=== PATIENT | female | born 1985 | race Caucasian/White ===

== ENCOUNTER 2020-08-31 20:34 | Emergency (ER) | payer OTHER ==
[2020-08-31 20:44] VITALS: RESP 18
[2020-08-31] MEDS ORDERED: SODIUM CHLORIDE 0.9% 1,000 ML IV STA (21:09)
[2020-08-31] MEDS ORDERED: METOCLOPRAMIDE 5 MG/ML 2 ML VIAL IVP STA (21:30)
[2020-08-31] MEDS ORDERED: HYDROmorphone 1 MG/ML 1 ML SYRINGE IVP STA (21:30)
[2020-08-31] MEDS ORDERED: diphenhydrAMINE 50 MG/ML 1 ML VIAL IVP STA (21:31)
[2020-08-31 21:48] LABS: ALT 46 U/L (4-34); AST 59 U/L (14-36); African American GFR (CKD) >90 (>60 ml/min/1.73 sqM); Alkaline Phosphatase 83 U/L (38-126); Anion Gap 6 mmol/L; Appearance,Urine Clear (Clear); Bilirubin,Urine Negative (Negative); Blood Urea Nitrogen 9 mg/dL (7-17); Blood,Urine Negative (Negative); Calcium 9.1 mg/dL (8.4-10.2); Carbon Dioxide 25 mmol/L (22-30); Chloride 105 mmol/L (98-107); Color,Urine Light Yellow; Glucose 139 mg/dL (74-99); Glucose,Urine (UA) Negative (Negative); Ketones,Urine Negative (Negative); Leukocyte Esterase,Urine Negative (Negative); Lipase 67 U/L (23-300); Nitrite,Urine Negative (Negative); Non-African American GFR(CKD) >90 (>60 ml/min/1.73 sqM); PH, Urine 5.5 (5.0-8.0); Potassium 3.5 mmol/L (3.5-5.1); Protein,Urine Negative (Negative); Sodium 136 mmol/L (137-145); Specific Gravity,Urine 1.006 (1.001-1.035); Total Bilirubin 0.5 mg/dL (0.2-1.3); Total Protein 6.6 g/dL (6.3-8.2); Urobilinogen,Urine <2.0 mg/dL (<2.0)
[2020-08-31 21:53] LABS: Basophils % (A) 0 %; Eosinophils % (A) 0 %; HGB 11.8 gm/dL (11.4-16.0); Lymphocytes # (A) 1.1 k/uL (1.0-4.8); Lymphocytes % (A) 22 %; MCH 30.6 pg (25.0-35.0); MCHC 33.6 g/dL (31.0-37.0); MCV 90.8 fL (80.0-100.0); Mean Platelet Volume 8.7; Monocytes # (A) 0.3 k/uL (0-1.0); Monocytes % (A) 6 %; Neutrophils # (A) 3.6 k/uL (1.3-7.7); Neutrophils % (A) 70 %; Platelet Count 236 k/uL (150-450); RBC 3.85 m/uL (3.80-5.40); RDW 12.7 % (11.5-15.5); WBC 5.1 k/uL (3.8-10.6)
--- NOTE | 2020-08-31 22:10 | CT ---
EXAMINATION TYPE: CT abdomen pelvis w con DATE OF EXAM: 08/31/2020 COMPARISON: None HISTORY: Abdominal pain. Hx of cholecystectomy x5 weeks ago. CT DLP: 523.2 mGycm Automated exposure control for dose reduction was used. CONTRAST: Performed with IV Contrast, patient injected with 100ml mL of Isovue 300. Images obtained from the diaphragm to the floor the pelvis with IV contrast. Lung bases are clear of infiltrate. There is no pleural effusion. Heart size is normal. There is no p ericardial effusion. Liver spleen stomach pancreas appear intact. The bile ducts are not dilated. There are clips from cho lecystectomy. There is no adrenal mass. Kidneys show satisfactory contrast opacification. There is no hydronephrosi s. The ureters are not dilated. There is no retroperitoneal adenopathy. Bladder distends smoothly. Th ere is no inguinal hernia. There is no free fluid in the pelvis. There is retained fecal material in the rectosigmoid colon. [place] michelle is retroverted. There is mild thoracolumbar dextroscoliosis. There is mild lumbar levoscoliosis. There is L1 anterior wedging with 20% loss of height. This appears to be an old compression fracture. There is no evidence of pelvic mass. Appendix not definitely seen. No sign of thickened appendix. IMPRESSION: Constipation. Appendix not seen. No sign of thickened appendix.
--- NOTE | 2020-08-31 22:55 | ED ---
General Adult HPI - General Chief complaint: Abdominal Pain Stated complaint: Abd Pain Time Seen by Provider: 08/31/20 20:40 Source: EMS Mode of arrival: EMS Limitations: no limitations - History of Present Illness Initial comments: Patient is a 35-year-old female who is brought to the emergency Department for reported epigastric abdominal pain. Patient states that she has had the pain for some time. She did have a cholecystectomy at [facility], [place] approximate 5 weeks ago. States that she did have some improvement in her pain however got worse over the past couple days. States she hasn't been able to eat or drink. Admits to history of peptic ulcer disease. States that she has had dark stools. Denies alcohol or NSAID use. Does have concern for . No abnormal vaginal bleeding or discharge. No dysuria, hematuria or voiding. No diarrhea or constipation. Patient was given morphine and Zofran by EMS without improvement in her symptoms. She denies any fevers. No chest pain or shortness of breath. No other alleviating, precipitating factors - Related Data Previous Rx's Medication Instructions Recorded HYDROcodone/APAP 5-325MG [Kincaid 1 tab PO Q6HR PRN 3 Days #12 tab 08/31/20 5-325] Metoclopramide HCl [Reglan] 10 mg PO TID PRN #20 tablet 08/31/20 Omeprazole 20 mg PO DAILY #14 tablet. 08/31/20 Sucralfate [Carafate] 1 gm PO ACHS #56 tab 08/31/20 Allergies Allergy/AdvReac Type Severity Reaction Status Date / Time No Known Allergies Allergy Verified 08/31/20 20:37 Review of Systems ROS Statement: Those systems with pertinent positive or pertinent negative responses have been documented in the HPI. ROS Other: All systems not noted in ROS Statement are negative. Past Medical History Past Medical History: No Reported History History of Any Multi-Drug Resistant Organisms: None Reported Past Surgical History: Cholecystectomy Past Psychological History: Anxiety, Depression, Panic Disorder, PTSD Smoking Status: Former smoker, Vaper Past Alcohol Use History: None Reported Past Drug Use History: None Reported General Exam Limitations: no limitations General appearance: alert, in no apparent distress Head exam: Present: atraumatic, normocephalic, normal inspection Eye exam: Present: normal appearance, PERRL, EOMI. Absent: scleral icterus, conjunctival injection, periorbital swelling ENT exam: Present: normal exam, mucous membranes moist Neck exam: Present: normal inspection. Absent: tenderness, meningismus, lymphadenopathy Respiratory exam: Present: normal lung sounds bilaterally. Absent: respiratory distress, wheezes, rales, rhonchi, stridor Cardiovascular Exam: Present: regular rate, normal rhythm, normal heart sounds. Absent: systolic murmur, diastolic murmur, rubs, gallop, clicks GI/Abdominal exam: Present: soft, tenderness (epigastric), normal bowel sounds. Absent: distended, guarding, rebound, rigid Extremities exam: Present: normal inspection, full ROM, normal capillary refill. Absent: tenderness, pedal edema, joint swelling, calf tenderness Back exam: Present: normal inspection Neurological exam: Present: alert, oriented X3, CN II-XII intact Psychiatric exam: Present: normal affect, normal mood Skin exam: Present: warm, dry, intact, normal color. Absent: rash Course Vital Signs 08/31/20 08/31/20 20:37 23:07 Temperature 98.1 F 98.2 F Pulse Rate 79 75 Respiratory 18 18 Rate Blood Pressure 112/62 100/64 O2 Sat by Pulse 94 L 96 Oximetry Medical Decision Making - Medical Decision Making Upon arrival patient's placed into room 7. A thorough history and physical exam was performed. Patient was are to give informal grams of morphine and 4 mg of Zofran by EMS and continues to have vomiting. Patient is then given 10 mg of Reglan, 25 mg of Benadryl and 1 mg of Dilaudid. Laboratory studies are conducted and reviewed. Results are discussed the patient. I also sent the patient for CT for abdomen and pelvis. Results of the CT of discuss the patient. At this time I did discuss diagnosis, differential and treatment options. Patient does feel much improved. Patient will be discharged home and needs to follow up with GI in regards to her symptoms. She is given Dr. Guevara's contact information. She needs to follow-up with her primary care doctor in 2-4 days. Return to the match her for any new or worsening symptoms. Patient was discharged home in stable condition - Lab Data Result diagrams: 08/31/20 21:14 08/31/20 21:14 Lab Results 08/31/20 08/31/20 08/31/20 Range/Units 21:14 21:14 21:14 WBC 5.1 (3.8-10.6) k/uL RBC 3.85 (3.80-5.40) m/uL Hgb 11.8 (11.4-16.0) gm/dL Hct 35.0 (34.0-46.0) % MCV 90.8 (80.0-100.0) fL MCH 30.6 (25.0-35.0) pg MCHC 33.6 (31.0-37.0) g/dL RDW 12.7 (11.5-15.5) % Plt Count 236 (150-450) k/uL MPV 8.7 Neutrophils % 70 % Lymphocytes % 22 % Monocytes % 6 % Eosinophils % 0 % Basophils % 0 % Neutrophils # 3.6 (1.3-7.7) k/uL Lymphocytes # 1.1 (1.0-4.8) k/uL Monocytes # 0.3 (0-1.0) k/uL Eosinophils # 0.0 (0-0.7) k/uL Basophils # 0.0 (0-0.2) k/uL Sodium (137-145) mmol/L Potassium (3.5-5.1) mmol/L Chloride (98-107) mmol/L Carbon Dioxide (22-30) mmol/L Anion Gap mmol/L BUN (7-17) mg/dL Creatinine (0.52-1.04) mg/dL Est GFR (CKD-EPI)AfAm (>60 ml/min/1.73 sqM) Est GFR (CKD-EPI)NonAf (>60 ml/min/1.73 sqM) Glucose (74-99) mg/dL Plasma Lactic Acid Jeramy (0.7-2.0) mmol/L Calcium (8.4-10.2) mg/dL Total Bilirubin (0.2-1.3) mg/dL AST (14-36) U/L ALT (4-34) U/L Alkaline Phosphatase (38-126) U/L Total Protein (6.3-8.2) g/dL Albumin (3.5-5.0) g/dL Lipase (23-300) U/L Urine Color Light Yellow Urine Appearance Clear (Clear) Urine pH 5.5 (5.0-8.0) Ur Specific [place] 1.006 (1.001-1.035) Urine Protein Negative (Negative) Urine Glucose (UA) Negative (Negative) Urine Ketones Negative (Negative) Urine Blood Negative (Negative) Urine Nitrite Negative (Negative) Urine Bilirubin Negative (Negative) Urine Urobilinogen <2.0 (<2.0) mg/dL Ur Leukocyte Esterase Negative (Negative) Urine HCG, Qual Not Detected (Not Detectd) Stool Occult Blood (Negative) 08/31/20 08/31/20 08/31/20 Range/Units 21:14 21:14 21:24 WBC (3.8-10.6) k/uL RBC (3.80-5.40) m/uL Hgb (11.4-16.0) gm/dL Hct (34.0-46.0) % MCV (80.0-100.0) fL MCH (25.0-35.0) pg MCHC (31.0-37.0) g/dL RDW (11.5-15.5) % Plt Count (150-450) k/uL MPV Neutrophils % % Lymphocytes % % Monocytes % % Eosinophils % % Basophils % % Neutrophils # (1.3-7.7) k/uL Lymphocytes # (1.0-4.8) k/uL Monocytes # (0-1.0) k/uL Eosinophils # (0-0.7) k/uL Basophils # (0-0.2) k/uL Sodium 136 L (137-145) mmol/L Potassium 3.5 (3.5-5.1) mmol/L Chloride 105 (98-107) mmol/L Carbon Dioxide 25 (22-30) mmol/L Anion Gap 6 mmol/L BUN 9 (7-17) mg/dL Creatinine 0.62 (0.52-1.04) mg/dL Est GFR (CKD-EPI)AfAm >90 (>60 ml/min/1.73 sqM) Est GFR (CKD-EPI)NonAf >90 (>60 ml/min/1.73 sqM) Glucose 139 H (74-99) mg/dL Plasma Lactic Acid Jeramy 1.2 (0.7-2.0) mmol/L Calcium 9.1 (8.4-10.2) mg/dL Total Bilirubin 0.5 (0.2-1.3) mg/dL AST 59 H (14-36) U/L ALT 46 H (4-34) U/L Alkaline Phosphatase 83 (38-126) U/L Total Protein 6.6 (6.3-8.2) g/dL Albumin 4.0 (3.5-5.0) g/dL Lipase 67 (23-300) U/L Urine Color Urine Appearance (Clear) Urine pH (5.0-8.0) Ur Specific [place] (1.001-1.035) Urine Protein (Negative) Urine Glucose (UA) (Negative) Urine Ketones (Negative) Urine Blood (Negative) Urine Nitrite (Negative) Urine Bilirubin (Negative) Urine Urobilinogen (<2.0) mg/dL Ur Leukocyte Esterase (Negative) Urine HCG, Qual (Not Detectd) Stool Occult Blood Negative (Negative) Disposition Clinical Impression: Epigastric abdominal pain Disposition: HOME SELF-CARE Condition: Stable Instructions (If sedation given, give patient instructions): Abdominal Pain (ED) Additional Instructions: Please follow-up with the GI doctor in regards to your symptoms. You may need an EGD. Return to the emergency room for any worsening symptoms Prescriptions: Sucralfate [Carafate] 1 gm PO ACHS #56 tab HYDROcodone/APAP 5-325MG [Kincaid 5-325] 1 tab PO Q6HR PRN 3 Days #12 tab PRN Reason: Pain Omeprazole 20 mg PO DAILY #14 tablet. Metoclopramide HCl [Reglan] 10 mg PO TID PRN #20 tablet PRN Reason: Vomiting Is patient prescribed a controlled substance at d/c from ED?: Yes When asked, does pt state using other controlled substances?: No If prescribed controlled substance>3 days was MAPS reviewed?: Prescribed <3 Days If opioid is for acute pain is fill amount 7 days or less?: Yes If Rx opioid, was Start Talking consent form obtained?: Yes Referrals: Emerson Brennan MD [Primary Care Provider] - 1-2 days Elisa Garcia MD [STAFF PHYSICIAN] - 1-2 days Time of Disposition: 23:10
[2020-08-31 23:09] VITALS: BP 100/64; PULSE 75; TEMP 98.2
== END 2020-08-31 23:30 | disposition home or self-care (01) ==
LOC: EC 20:34 → SUPCPDRO 20:34 → EC 23:30
DX: R10.13 Epigastric pain (principal); F41.9 Anxiety disorder, unspecified; F32.9 Major depressive disorder, single episode, unspecified; F17.290 Nicotine dependence, other tobacco product, uncomplicated; Z87.11 Personal history of peptic ulcer disease; Z79.899 Other long term (current) drug therapy; Z90.49 Acquired absence of other specified parts of digestive tract
CPT/HCPCS: 36415; 80053; 83605; 83690; 85025; 82272; 81003; 81025; 74177; 99284; 96374; 96375 ×2; 96361 ×2; J1200; J2765; J1170; Q9967

== ENCOUNTER 2022-12-04 15:10 | Inpatient (IN) | payer MEDICARE, MEDICAID ==
[2022-12-04 18:39] LABS: Amphetamine Screen,Urine Detected (NotDetected); Barbiturate Screen,Urine Not Detected (NotDetected); Benzodiazepines Screen,Urine Detected (NotDetected); Cocaine Screen,Urine Not Detected (NotDetected); Methadone Screen, Urine Not Detected (NotDetected); Opiate Screen,Urine Not Detected (NotDetected); Oxycodone Screen, Urine Not Detected (NotDetected); Phencyclidine Screen,Urine Not Detected (NotDetected); Tricyclic Antidepressant,Urine Not Detected (NotDetected); Urn Cannabinoid Scrn Not Detected (NotDetected)
--- NOTE | 2022-12-04 18:40 | ED ---
General Adult HPI - General Chief complaint: Psychiatric Symptoms Stated complaint: Mental Health Time Seen by Provider: 12/04/22 15:45 Source: patient, RN notes reviewed, old records reviewed Mode of arrival: ambulatory Limitations: no limitations - History of Present Illness Initial comments: This is a 37-year-old female who states she's been having suicidal ideations for the last week. Patient states that the thoughts are occurring more often. Patient states she told her counselor about this today and the counselor told to come to the emergency department immediately. Patient denies any physical complaints today. Patient states she does worry about going home because she is worried that these thoughts will progress and she'll actually make an attempt. - Related Data Home Medications Medication Instructions Recorded Confirmed Brexpiprazole [Rexulti] 4 mg PO DAILY 12/04/22 12/04/22 Dextroamphetamine/Amphetamine 30 mg PO BID 12/04/22 12/04/22 [Adderall] Mirtazapine [Remeron] 15 mg PO HS 12/04/22 12/04/22 Vortioxetine Hydrobromide 20 mg PO DAILY 12/04/22 12/04/22 [Trintellix] busPIRone HCL [Buspar] 30 mg PO BID 12/04/22 12/04/22 diazePAM 10 mg PO TID 12/04/22 12/04/22 hydrOXYzine pamoate [hydrOXYzine 25 mg PO BID 12/04/22 12/04/22 PAMOATE] Allergies Allergy/AdvReac Type Severity Reaction Status Date / Time No Known Allergies Allergy Verified 12/04/22 15:45 Review of Systems ROS Statement: Those systems with pertinent positive or pertinent negative responses have been documented in the HPI. ROS Other: All systems not noted in ROS Statement are negative. Past Medical History Past Medical History: No Reported History History of Any Multi-Drug Resistant Organisms: None Reported Past Surgical History: Cholecystectomy Past Psychological History: Anxiety, Depression, Panic Disorder, PTSD Smoking Status: Former smoker, Vaper Past Alcohol Use History: None Reported Past Drug Use History: None Reported General Exam - General Exam Comments Initial Comments: GENERAL: Patient is well-developed and well-nourished. Patient is nontoxic and well- hydrated and is in no acute distress. ENT: Neck is soft and supple. No significant lymphadenopathy is noted. Oropharynx is clear. Moist mucous membranes. Neck has full range of motion without eliciting any pain. EYES: The sclera were anicteric and conjunctiva were pink and moist. Extraocular movements were intact and pupils were equal round and reactive to light. Eyelids were unremarkable. PULMONARY: Unlabored respirations. Good breath sounds bilaterally. No audible rales rhonchi or wheezing was noted. CARDIOVASCULAR: There is a regular rate and rhythm without any murmurs gallops or rubs. ABDOMEN: Soft and nontender with normal bowel sounds. SKIN: Skin is clear with no lesions or rashes and otherwise unremarkable. NEUROLOGIC: Patient is alert and oriented x3. Cranial nerves II through XII are grossly intact. Motor and sensory are also intact. Normal speech, volume and content. Symmetrical smile. MUSCULOSKELETAL: Normal extremities with adequate strength and full range of motion. LYMPHATICS: No significant lymphadenopathy is noted PSYCHIATRIC: Patient states that she is having suicidal thoughts more often. Limitations: no limitations Course Vital Signs 12/04/22 12/04/22 15:41 20:00 Temperature 98.1 F 98.2 F Pulse Rate 107 H 68 Respiratory 20 18 Rate Blood Pressure 120/73 110/71 O2 Sat by Pulse 99 100 Oximetry Medical Decision Making - Medical Decision Making Was pt. sent in by a medical professional or institution (, PA, MUSIC MANAGER, urgent care, hospital, or detention...) When possible be specific @ -Patient was sent in by her counselor to be evaluated Did you speak to anyone other than the patient for history (EMS, parent, family, police, friend...)? What history was obtained from this source @ -[No] Did you review nursing and triage notes (agree or disagree)? Why? @ -[I reviewed and agree with nursing and triage notes] Were old charts reviewed (outside hosp., previous admission, EMS record, old EKG, old radiological studies, urgent care reports/EKG's, detention records)? Report findings @ -[No old charts were reviewed] Differential Diagnosis (chest pain, altered mental status, abdominal pain women, abdominal pain men, vaginal bleeding, weakness, fever, dyspnea, syncope, headache, dizziness, GI bleed, back pain, seizure, CVA, palpatations, mental health, musculoskeletal)? @ -Differential Mental Health Depression, anxiety, bipolar, psychosis, schizophrenia, borderline personality, situational depression, adjustment disorder, behavioral disorder, brain tumor, malingering, substance abuse, encephalopathy, medication reaction, dementia, hypothyroidism, degenerative neurologic disorder, lupus.... This is not meant to be all-inclusive list EKG interpreted by me (3pts min.). @ -[As above] X-rays interpreted by me (1pt min.). @ -[None done] CT interpreted by me (1pt min.). @ -[None done] U/S interpreted by me (1pt. min.). @ -[None done] What testing was considered but not performed or refused? (CT, X-rays, U/S, labs)? Why? @ -[None] What meds were considered but not given or refused? Why? @ -[None] Did you discuss the management of the patient with other professionals (professionals i.e. , PA, MUSIC MANAGER, lab, RT, psych nurse, social work nurse, social organization professor, teacher, chief merchandising officer, outsole caser)? Give summary @ -I spoke with the EPS evaluated the patient and determined the patient needed to be admitted Was smoking cessation discussed for >3mins.? @ -[No] Was critical care preformed (if so, how long)? @ -[No] Were there social determinants of health that impacted care today? How? (Homele ssness, low income, unemployed, alcoholism, drug addiction, transportation, low edu. Level, literacy, decrease access to med. care, penitentiary, rehab)? @ -[No] Was there de-escalation of care discussed even if they declined (Discuss DNR or withdrawal of care, Hospice)? DNR status @ -[No] What co-morbidities impacted this encounter? (DM, HTN, Smoking, COPD, CAD, Cancer, CVA, ARF, Chemo, Hep., AIDS, mental health diagnosis, sleep apnea, morbid obesity)? @ -[None] Was patient admitted / discharged? Hospital course, mention meds given and route, prescriptions, significant lab abnormalities, going to OR and other pertinent info. @ -Patient was evaluated and it was determined after speaking with the psychiatrist that the patient should be admitted patient will be taking upstairs to the psychiatric unit Undiagnosed new problem with uncertain prognosis? @ -[No] Drug Therapy requiring intensive monitoring for toxicity (Heparin, Nitro, Insulin, Cardizem)? @ -[No] Were any procedures done? @ -[No] Diagnosis/symptom? @ -Suicidal ideations Acute, or Chronic, or Acute on Chronic? @ -Acute Uncomplicated (without systemic symptoms) or Complicated (systemic symptoms)? @ -Complicated Side effects of treatment? @ -[No] Exacerbation, Progression, or Severe Exacerbation? @ -[No] Poses a threat to life or bodily function? How? (Chest pain, USA, MS, pneumonia, PE, COPD, DKA, ARF, appy, cholecystitis, CVA, Diverticulitis, Homicidal, Suicidal, threat to staff... and all critical care pts) @ -Yes this could lead to patient committing suicide and - Lab Data Lab Results 12/04/22 Range/Units 18:21 Urine Opiates Screen Not Detected (NotDetected) Ur Oxycodone Screen Not Detected (NotDetected) Urine Methadone Screen Not Detected (NotDetected) Ur Propoxyphene Screen Not Detected (NotDetected) Ur Barbiturates Screen Not Detected (NotDetected) U Tricyclic Antidepress Not Detected (NotDetected) Ur Phencyclidine Scrn Not Detected (NotDetected) Ur Amphetamines Screen Detected H (NotDetected) U Methamphetamines Scrn Not Detected (NotDetected) U Benzodiazepines Scrn Detected H (NotDetected) Urine Cocaine Screen Not Detected (NotDetected) U Marijuana (THC) Screen Not Detected (NotDetected) Disposition Clinical Impression: Suicidal ideation Disposition: ADMITTED IP TO THIS HOSP Referrals: Emerson Brennan MD [Primary Care Provider] - 1-2 days Time of Disposition: 21:04
[2022-12-04] MEDS ORDERED: IBUPROFEN 600 MG TAB PO PRN (22:09)
[2022-12-04] MEDS ORDERED: MAGNESIUM HYDROXIDE 2,400 MG/30 ML CUP PO PRN (22:09)
[2022-12-04] MEDS ORDERED: OLANZapine 7.5 MG TAB PO PRN (22:09)
[2022-12-04] MEDS ORDERED: hydrOXYzine HCL 25 MG TAB PO PRN (22:09)
[2022-12-04] MEDS ORDERED: hydrOXYzine HCL 50 MG/ML 1 ML VIAL IM PRN (22:09)
[2022-12-04] MEDS ORDERED: ACETAMINOPHEN TAB 325 MG TAB PO PRN (22:09)
[2022-12-04] MEDS ORDERED: OLANZapine 10 MG VIAL IM PRN (22:09)
[2022-12-04] MEDS ORDERED: diazePAM 5 MG TAB PO PRN (22:09)
[2022-12-04] MEDS ORDERED: MAG HYDROX/AL HYDROX/SIMETH 30 ML CUP PO PRN (22:09)
[2022-12-04] MEDS ORDERED: OLANZapine 5 MG TAB PO PRN (22:37)
[2022-12-04] MEDS: MIRTAZAPINE 15 MG TAB PO SCH (23:13)
[2022-12-05 05:49] LABS: Appearance,Urine Cloudy (Clear); Bilirubin,Urine Negative (Negative); Blood,Urine Negative (Negative); Color,Urine Yellow; Glucose,Urine (UA) Negative (Negative); Ketones,Urine Negative (Negative); Leukocyte Esterase,Urine Negative (Negative); Mucus,Urine Many /hpf; Nitrite,Urine Negative (Negative); PH, Urine 6.5 (5.0-8.0); Protein,Urine Trace (Negative); RBC,Urine 4 /hpf (0-5); Specific Gravity,Urine 1.023 (1.001-1.035); Squamous Epithelial Cell,Urine 3 /hpf (0-4); WBC,Urine 12 /hpf (0-5)
[2022-12-05 06:35] VITALS: RESP 16; TEMP 98.2
[2022-12-05] MEDS: VORTIOXETINE HYDROBROMIDE 20 MG TABLET PO SCH (09:26)
[2022-12-05] MEDS: busPIRone HCl 10 MG TAB PO SCH ×2 (09:26→21:26)
[2022-12-05 09:34] VITALS: BP 116/69; PULSE 119
[2022-12-05] MEDS: NON FORMULARY DRUG (Brexpiprazole [Rexulti] 4 MG Tablet) PO SCH (09:37)
[2022-12-05 10:24] LABS: Basophils % (A) 0 %; Eosinophils % (A) 1 %; HCT 37.4 % (34.0-46.0); HGB 12.5 gm/dL (11.4-16.0); Lymphocytes % (A) 29 %; MCH 30.6 pg (25.0-35.0); MCHC 33.3 g/dL (31.0-37.0); MCV 91.8 fL (80.0-100.0); Mean Platelet Volume 7.8; Monocytes # (A) 0.3 k/uL (0-1.0); Monocytes % (A) 8 %; Neutrophils # (A) 2.2 k/uL (1.3-7.7); Neutrophils % (A) 61 %; Platelet Count 289 k/uL (150-450); RBC 4.07 m/uL (3.80-5.40); RDW 12.3 % (11.5-15.5); WBC 3.6 k/uL (3.8-10.6)
[2022-12-05 10:40] LABS: ALT 13 U/L (4-34); AST 18 U/L (14-36); African American GFR (CKD) >90 (>60 ml/min/1.73 sqM); Alkaline Phosphatase 60 U/L (38-126); Anion Gap 8 mmol/L; Bilirubin, Delta 0.2 mg/dL (0.0-0.2); Bilirubin,Unconjugated 0.1 mg/dL (0.0-1.1); Blood Urea Nitrogen 9 mg/dL (7-17); Calcium 9.1 mg/dL (8.4-10.2); Carbon Dioxide 30 mmol/L (22-30); Chloride 100 mmol/L (98-107); Glucose 87 mg/dL (74-99); Non-African American GFR(CKD) 84 (>60 ml/min/1.73 sqM); Potassium 4.8 mmol/L (3.5-5.1); Sodium 138 mmol/L (137-145); Total Bilirubin 0.3 mg/dL (0.2-1.3); Total Protein 6.8 g/dL (6.3-8.2)
--- NOTE | 2022-12-05 12:28 | P.MDCNMH ---
History of Present Illness H&P Date: 12/05/22 This is a very pleasant 37-year-old female who presented to the emergency department after a phone call conversation with her psychiatrist/therapist reporting increased anxiety with depression and some suicidal ideation a have been progressively getting worse. Patient was directed to go to the emergency department for psychiatric evaluation. Patient reports primary care provider is Dr. Brennan in the outpatient setting although mentioned during conversation that she has not seen him in quite some time and mostly follows with her psychiatrist/counselor. Patient reports no significant past medical history other than anxiety/depression with panic disorder and PTSD. Patient reports she is a former smoker with vaping and does not use any illicit drugs nor drinks alcohol. On exam patient denies any chest pain, shortness of breath, or palpitations. Patient reports she is tolerating diet with no reported nausea or vomiting noted. Discussed with the patient about medication compliance with psychiatric evaluation as well as group therapy meetings and patient reported she becomes increasingly anxious in crowds and prefers not to go to group therapy meetings. Labs reviewed and within normal limits and TSH was 1.6-0, urinalysis was negative and drug screen was positive for amphetamines and benzos as patient does take BuSpar, Remeron, Adderall, Rexulti. Patient reports she obtains her medications through her psychiatrist. Patient reported feeling increased suicidal ideations and had mentioned that she felt her daughters would have a better life without her. Patient was voluntary admitted to [facility] psychiatric unit for further evaluation. Review Of Systems: Constitutional: No fever, no chills, no night sweats. No weight change. No weakness, fatigue or lethargy. No daytime sleepiness. EENT: No headache. No blurred vision or double vision, no loss of vision. No loss of Hearing, no ringing in the ears, no dizziness. No nasal drainage or congestion. No epistaxis. No sore throat. Lungs: No shortness of breath, cough, no sputum production. No wheezing. Cardiovascular: No chest pain, no lower extremity edema. No palpitations. No paroxysmal nocturnal dyspnea. No orthopnea. No lightheadedness or dizziness. No syncopal episodes. Abdominal: No abdominal pain. No nausea, vomiting. No diarrhea. No constipation. No bloody or tarry stools.. No loss of appetite. Genitourinary: No dysuria, increased frequency, urgency. No urinary retention. Musculoskeletal: No myalgias. No muscle weakness, no gait dysfunction, no frequent falls. No back pain. No neck pain. Integumentary: No wounds, no lesions. No rash or pruritus. No unusual bruising. No change in hair or nails. Neurologic: No aphasia. No facial droop. No change in mentation. No head injury. No headache. No paralysis. No paresthesia. Psychiatric: Reports increased depression with anxiety and suicidal ideations. No mood swings. Endocrine: No abnormal blood sugars. No weight change. No excessive sweating or thirst. No cold intolerance. PHYSICAL EXAMINATION: GENERAL: The patient is alert and oriented x4, thin built, Well developed HEENT: Pupils are round and equally reacting to light. EOMI. no scleral icterus. No conjunctival pallor. Normocephalic, atraumatic. No pharyngeal erythema. No thyromegaly. CARDIOVASCULAR: S1 and S2 muffled PULMONARY: Chest is clear to auscultation with no wheezing or rhonchi noted. ABDOMEN: soft. Nontender on exam. non-distended, normoactive bowel sounds. No palpable organomegaly. MUSCULOSKELETAL: No joint swelling or deformity. EXTREMITIES: No cyanosis, clubbing, or pedal edema. NEUROLOGICAL: Gross neurological examination did not reveal any focal deficits. Gait was steady on exam SKIN: No rashes. Assessment: Depression with suicidal ideation History of anxiety/depression/PTSD Former smoker Moderate protein calorie malnutrition with a BMI of 15.9 Full code Plan: Patient was voluntarily admitted to [facility] for suicidal ideations Patient reports her primary care provider is Dr. Brennan in the outpatient setting although does not normally follow with him and has not seen him in quite some time and mostly follows with her psychiatrist/therapist All medications reviewed and resumed as appropriate Labs reviewed within normal limits Encouraged medication compliance and psychiatric evaluation and did discuss with the patient about group therapy sessions although patient reports she has increased anxiety and does not handle crowds very well Encouraged to increase activity as tolerated and up more frequently during the day Encouraged oral intake. Thank you kindly for this consultation. The impression and plan of care has been dictated by Jada Lal, nurse practitioner as directed. Dr. Janene MD I have performed a history and examination and MDM of this patient, discussed the same with the dictator, and agree with the dictator's assessment and plan as written ,documented as a scribe. Based on total visit time, I have performed more than 50% of the visit. Any additional findings or plans will be noted. Past Medical History Past Medical History: No Reported History History of Any Multi-Drug Resistant Organisms: None Reported Past Surgical History: Cholecystectomy Additional Past Surgical History / Comment(s): multiple eardrum abcess surgeries from age of 1 y.o that led to hearing loss Past Anesthesia/Blood Transfusion Reactions: No Reported Reaction Past Psychological History: Anxiety, Depression, Panic Disorder, PTSD Smoking Status: Former smoker, Vaper Past Alcohol Use History: None Reported Past Drug Use History: None Reported Medications and Allergies Home Medications Medication Instructions Recorded Confirmed Type Brexpiprazole [Rexulti] 4 mg PO DAILY 12/04/22 12/04/22 History Dextroamphetamine/Amphetamine 30 mg PO BID 12/04/22 12/04/22 History [Adderall] Mirtazapine [Remeron] 15 mg PO HS 12/04/22 12/04/22 History Vortioxetine Hydrobromide 20 mg PO DAILY 12/04/22 12/04/22 History [Trintellix] busPIRone HCL [Buspar] 30 mg PO BID 12/04/22 12/04/22 History diazePAM 10 mg PO TID 12/04/22 12/04/22 History hydrOXYzine pamoate [hydrOXYzine 25 mg PO BID 12/04/22 12/04/22 History PAMOATE] Allergies Allergy/AdvReac Type Severity Reaction Status Date / Time No Known Allergies Allergy Verified 12/04/22 15:45 Physical Exam Vitals: Vital Signs Temp Pulse Pulse Resp BP BP Pulse Ox 12/05/22 09:25 119 H 116/69 12/05/22 06:33 98.2 F 73 16 126/59 97 12/05/22 02:37 97.5 F L 74 18 120/58 99 12/05/22 01:15 98.3 F 77 18 116/72 99 12/04/22 20:00 98.2 F 68 18 110/71 100 12/04/22 15:41 98.1 F 107 H 20 120/73 99 Intake and Output 12/04/22 12/05/22 12/05/22 22:59 06:59 14:59 Other: Weight 43.998 kg 44.7 kg Cranial Nerve Examination - Cranial Nerves Cranial Nerve I- Olfactory: Intact Cranial Nerve II- Optic: Intact Cranial Nerve III- Oculomotor: Intact Cranial Nerve IV- Trochlear: Intact Cranial Nerve V- Trigeminal: Intact Cranial Nerve - Abducens: Intact Cranial Nerve VII- Facial: Intact Cranial Nerve VIII- Auditory: Intact Cranial Nerve IX- Glossopharyngeal: Intact Cranial Nerve X- Vagus: Intact Cranial Nerve XI- Accessory: Intact Cranial Nerve XII- Hypoglossal: Intact Results CBC & Chem 7: 12/05/22 09:47 12/05/22 09:47 Labs: Abnormal Lab Results - Last 24 Hours (Table) 12/04/22 12/04/22 Range/Units 18:21 18:21 Urine Appearance Cloudy H (Clear) Urine Protein Trace H (Negative) Urine WBC 12 H (0-5) /hpf Urine Mucus Many H (None) /hpf Ur Amphetamines Screen Detected H (NotDetected) U Benzodiazepines Scrn Detected H (NotDetected) Assessment and Plan Time with Patient: Less than 30
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
[2022-12-05 16:14] VITALS: BMI 15.9
[2022-12-05 20:03] LABS: Chol/HDL Ratio 3.25 Ratio; VLDL Calculation 11.18 mg/dL (5.00-40.00)
[2022-12-05] MEDS ORDERED: PRAZOSIN 1 MG CAP PO SCH (21:00)
[2022-12-05] MEDS: MIRTAZAPINE 15 MG TAB PO SCH (21:26)
[2022-12-06] MEDS: NON FORMULARY DRUG (Brexpiprazole [Rexulti] 4 MG Tablet) PO SCH (07:54)
[2022-12-06] MEDS: busPIRone HCl 10 MG TAB PO SCH (07:59)
[2022-12-06] MEDS: VORTIOXETINE HYDROBROMIDE 20 MG TABLET PO SCH (08:00)
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
== END 2022-12-06 14:08 | disposition home or self-care (01) | DRG 882 ==
LOC: EC 15:10 → 3MHU 22:03
PROVIDERS: ADMIT Psychiatry & Neurology Psychiatry; ATTEND Psychiatry & Neurology Psychiatry
DX: F43.23 Adjustment disorder with mixed anxiety and depressed mood (principal); E44.0 Moderate protein-calorie malnutrition; Z68.1 Body mass index [BMI] 19.9 or less, adult; F32.A Depression, unspecified; F41.0 Panic disorder [episodic paroxysmal anxiety]; Z28.310 Unvaccinated for COVID-19; Z28.21 Immunization not carried out because of patient refusal; Z71.3 Dietary counseling and surveillance; Z63.5 Disruption of family by separation and divorce; Z91.410 Personal history of adult physical and sexual abuse; Z87.891 Personal history of nicotine dependence; Z91.51 Personal history of suicidal behavior; Z71.89 Other specified counseling; F60.89 Other specific personality disorders; F43.10 Post-traumatic stress disorder, unspecified; Z79.899 Other long term (current) drug therapy; G47.00 Insomnia, unspecified; R45.1 Restlessness and agitation
CPT/HCPCS: 80053; 80061; 80306; 81001; 81025; 82075; 82248; 83036; 84443; 85025; 87635; 99285

== ENCOUNTER 2023-04-14 12:31 | Emergency (ER) | payer MEDICAID, MEDICARE, OTHER ==
--- NOTE | 2023-04-14 14:26 | ED ---
Abdominal Pain HPI - General Source: patient, EMS Mode of arrival: EMS Limitations: no limitations <Barrington Joya - Last Filed: 04/14/23 14:29> <Angelito Santos - Last Filed: 04/14/23 19:22> - General Chief Complaint: Abdominal Pain Stated Complaint: possible parasite Time Seen by Provider: 04/14/23 14:29 - History of Present Illness Initial Comments: 38-year-old female who presented to the ED with the chief complaint of "worms". She reports for the past month she has had intermittent fatigue and itching around her rectum is concerned that she has worms. (Barrington Joya) - Related Data Home Medications Medication Instructions Recorded Confirmed Brexpiprazole [Rexulti] 4 mg PO DAILY 12/04/22 12/04/22 Dextroamphetamine/Amphetamine 30 mg PO BID 12/04/22 12/04/22 [Adderall] Vortioxetine Hydrobromide 20 mg PO DAILY 12/04/22 12/04/22 [Trintellix] diazePAM 10 mg PO TID 12/04/22 12/04/22 Previous Rx's Medication Instructions Recorded Mirtazapine [Remeron] 15 mg PO HS 30 Days #30 tab 12/06/22 Prazosin [Minipress] 2 mg PO HS 30 Days #60 cap 12/06/22 busPIRone HCL [Buspar] 30 mg PO BID 30 Days #60 tab 12/06/22 Albendazole [Albenza] 400 mg PO ONCE #4 tablet 04/14/23 Allergies Allergy/AdvReac Type Severity Reaction Status Date / Time No Known Allergies Allergy Verified 12/04/22 15:45 Review of Systems ROS Other: All systems not noted in ROS Statement are negative. <Barrington Joya - Last Filed: 04/14/23 14:29> ROS Other: All systems not noted in ROS Statement are negative. <Angelito Santos - Last Filed: 04/14/23 19:22> ROS Statement: Those systems with pertinent positive or pertinent negative responses have been documented in the HPI. Past Medical History Past Medical History: No Reported History History of Any Multi-Drug Resistant Organisms: None Reported Past Surgical History: Cholecystectomy Additional Past Surgical History / Comment(s): multiple eardrum abcess surgeries from age of 1 y.o that led to hearing loss Past Anesthesia/Blood Transfusion Reactions: No Reported Reaction Past Psychological History: Anxiety, Depression, Panic Disorder, PTSD Smoking Status: Former smoker, Vaper Past Alcohol Use History: None Reported Past Drug Use History: None Reported <Barrington Joya - Last Filed: 04/14/23 14:29> General Exam Limitations: no limitations <Barrington Joya - Last Filed: 04/14/23 14:29> General appearance: alert, in no apparent distress Head exam: Present: atraumatic, normocephalic Eye exam: Present: normal appearance, PERRL Respiratory exam: Present: normal lung sounds bilaterally. Absent: respiratory distress Cardiovascular Exam: Present: normal rhythm, tachycardia GI/Abdominal exam: Present: soft. Absent: distended, tenderness Neurological exam: Present: alert, oriented X3 Psychiatric exam: Present: normal affect, normal mood Skin exam: Present: warm, dry, intact <Angelito Santos - Last Filed: 04/14/23 19:22> - General Exam Comments Initial Comments: Visual Physical Exam Vital signs reviewed General: Well-appearing, nontoxic, no acute distress. Head: Normocephalic, atraumatic Eyes: PERRLA, EOMI ENT: Airway patent Chest: Nonlabored breathing Skin: No visual rash, normal skin tone Neuro: Alert and oriented 3 Musculoskeletal: No gross abnormalities (Barrington Joya) Course Vital Signs 04/14/23 04/14/23 04/14/23 12:39 15:10 15:34 Temperature 98.1 F 97.6 F Pulse Rate 131 H 133 H Respiratory 18 19 Rate Blood Pressure 134/83 129/91 O2 Sat by Pulse 98 97 Oximetry 04/14/23 15:46 Temperature Pulse Rate 108 H Respiratory Rate Blood Pressure O2 Sat by Pulse Oximetry Medical Decision Making <Barrington Joya - Last Filed: 04/14/23 14:29> <Angelito Santos - Last Filed: 04/14/23 19:22> - Medical Decision Making Quicknote portion performed. Signed Barrington Joya PA-C (Barrington Joya) Was pt. sent in by a medical professional or institution (GUTIERREZ Sanchez, AIR SUPPORT CONTROL OFFICER, urgent care, hospital, or penitentiary...) When possible be specific @ -No Did you speak to anyone other than the patient for history (EMS, parent, family, police, friend...)? What history was obtained from this source @ -No Did you review nursing and triage notes (agree or disagree)? Why? @ -I reviewed and agree with nursing and triage notes Were old charts reviewed (outside hosp., previous admission, EMS record, old EKG, old radiological studies, urgent care reports/EKG's, penitentiary records)? Report findings @ -No old charts were reviewed Differential Diagnosis (chest pain, altered mental status, abdominal pain women, abdominal pain men, vaginal bleeding, weakness, fever, dyspnea, syncope, headache, dizziness, GI bleed, back pain, seizure, CVA, palpatations, mental health, musculoskeletal)? @ concern for pinworms EKG interpreted by me (3pts min.). @ -As above X-rays interpreted by me (1pt min.). @ -None done CT interpreted by me (1pt min.). @ -None done U/S interpreted by me (1pt. min.). @ -None done What testing was considered but not performed or refused? (CT, X-rays, U/S, labs)? Why? @ -None What meds were considered but not given or refused? Why? @ -None Did you discuss the management of the patient with other professionals (professionals i.e. , PA, AIR SUPPORT CONTROL OFFICER, lab, RT, psych nurse, social human services assistants, commercial front load driver, teacher, custody officer, case resource manager)? Give summary @ -No Was smoking cessation discussed for >3mins.? @ -No Was critical care preformed (if so, how long)? @ -No Were there social determinants of health that impacted care today? How? (Homelessness, low income, unemployed, alcoholism, drug addiction, transp ortation, low edu. Level, literacy, decrease access to med. care, penitentiary, rehab)? @ -No Was there de-escalation of care discussed even if they declined (Discuss DNR or withdrawal of care, Hospice)? DNR status @ -No What co-morbidities impacted this encounter? (DM, HTN, Smoking, COPD, CAD, Cancer, CVA, ARF, Chemo, Hep., AIDS, mental health diagnosis, sleep apnea, morbid obesity)? @ -None Was patient admitted / discharged? Hospital course, mention meds given and route, prescriptions, significant lab abnormalities, going to OR and other pertinent info. @ Patient with likely pinworm infection, daughter also having evidence of worms. Will be treated. Undiagnosed new problem with uncertain prognosis? @ -No Drug Therapy requiring intensive monitoring for toxicity (Heparin, Nitro, Insulin, Cardizem)? @ -No Were any procedures done? @ -No Diagnosis/symptom? @ -[pinworms Acute, or Chronic, or Acute on Chronic? @ -acute Uncomplicated (without systemic symptoms) or Complicated (systemic symptoms)? @ -default Side effects of treatment? @ -No Exacerbation, Progression, or Severe Exacerbation? @ -No Poses a threat to life or bodily function? How? (Chest pain, USA, VT, pneumonia, PE, COPD, DKA, ARF, appy, cholecystitis, CVA, Diverticulitis, Homicidal, Suicidal, threat to staff... and all critical care pts) @ -No (Angelito Santos) Disposition <Barrington Joya - Last Filed: 04/14/23 14:29> Is patient prescribed a controlled substance at d/c from ED?: No Time of Disposition: 15:17 <Angelito Santos - Last Filed: 04/14/23 19:22> Clinical Impression: Pinworms Disposition: HOME SELF-CARE Condition: Fair Instructions (If sedation given, give patient instructions): Pinworm Infection (ED) Prescriptions: Mebendazole [Emverm chew] 100 mg PO ONCE #2 tab Referrals: Emerson Brennan MD [Primary Care Provider] - 1-2 days
[2023-04-14 15:39] VITALS: BP 129/91; RESP 19
[2023-04-14 15:40] VITALS: TEMP 97.6
[2023-04-14 16:04] VITALS: PULSE 108
== END 2023-04-14 15:47 | disposition home or self-care (01) ==
LOC: EC 12:31
DX: B80 Enterobiasis (principal); F41.9 Anxiety disorder, unspecified; F32.A Depression, unspecified; F17.290 Nicotine dependence, other tobacco product, uncomplicated; Z79.899 Other long term (current) drug therapy
CPT/HCPCS: 99283

== ENCOUNTER → 2024-08-04 | Outpatient (CLI) | payer MEDICARE, OTHER ==
--- NOTE | 2024-08-04 11:44 | MM ---
Reason for Exam: Screening (asymptomatic). Baseline mammogram. Patient History: Menarche at age 9. First Full-Term at age 17. Perimenopausal. Maternal aunt had breast cancer. Paternal aunt had breast cancer. Maternal grandmother had breast cancer. Paternal grandmother had breast cancer. Last menstrual period: 07/15/2024 Risk Values: Ne 5 year model risk: 0.4%. NCI Lifetime model risk: 8.0%. Prior Study Comparison: Patient's first Mammogram. Tissue Density: The breasts are extremely dense, which lowers the sensitivity of mammography. Findings: Analyzed By CAD. Possible obscured focal asymmetry upper-outer quadrant right breast posterior depth for which further evaluation is recommended. Otherwise, no suspicious microcalcification or other discrete abnormality is seen. Overall Assessment: Incomplete: need additional imaging evaluation, BI-RAD 0 Management: Special View Mammogram of the right breast. [facility] will attempt to contact patient to return for supplemental views and ultrasound if indicated. [facility], , 08/04/2024 11:41 AM. Electronically signed and approved by: Deya Resendez M.D. Radiologist
== END | disposition home or self-care (01) ==
LOC: RADMAMWWP 08:42
PROVIDERS: ATTEND Obstetrics & Gynecology
DX: Z12.31 Encounter for screening mammogram for malignant neoplasm of breast (principal); R92.343 Mammographic extreme density, bilateral breasts; Z80.3 Family history of malignant neoplasm of breast
CPT/HCPCS: 77063; 77067

== ENCOUNTER → 2024-08-09 | Outpatient (CLI) | payer MEDICARE, OTHER ==
--- NOTE | 2024-08-09 08:49 | MM ---
Reason for Exam: Additional evaluation requested from abnormal screening. Last screening mammogram was performed less than 1 month ago. Patient History: Menarche at age 9. First Full-Term at age 17. Perimenopausal. Maternal aunt had breast cancer. Paternal aunt had breast cancer. Maternal grandmother had breast cancer. Paternal grandmother had breast cancer. Risk Values: Ne 5 year model risk: 0.4%. NCI Lifetime model risk: 8.0%. Prior Study Comparison: 08/04/2024 Bilateral MG 3D screening mammo w/cad, [facility]. Tissue Density: Right: The breasts are extremely dense, which lowers the sensitivity of mammography. Findings: Analyzed By CAD. Persistent focal asymmetry upper inner aspect right breast could reflect asymmetric prominent tissue but requires ultrasound evaluation. Overall Assessment: Incomplete: need additional imaging evaluation, BI-RAD 0 Management: Diagnostic Breast Ultrasound of the right breast. Targeted ultrasound. Results were given to the patient verbally at the time of exam. Patient should continue monthly self-breast exams. A clinical breast exam by your physician is recommended on an annual basis. This exam should not preclude additional follow-up of suspicious palpable abnormalities. Note on Ne scores and lifetime risk: 1. A Ne score greater than 3% is considered moderate risk. If this is the case, consider specialist referral to assess eligibility for a risk reducing agent. 2. If overall lifetime risk for the development of breast cancer is 20% or higher, the patient may qualify for future screening with alternating mammogram and breast MRI. [facility], , 08/09/2024 8:46 AM. Electronically signed and approved by: Ney Phillips M.D.
--- NOTE | 2024-08-09 09:21 | USB ---
Reason for Exam: Additional evaluation requested from abnormal screening. Patient History: Menarche at age 9. First Full-Term at age 17. Perimenopausal. Maternal aunt had breast cancer. Paternal aunt had breast cancer. Maternal grandmother had breast cancer. Paternal grandmother had breast cancer. Risk Values: Ne 5 year model risk: 0.4%. NCI Lifetime model risk: 8.0%. Technique: Method: Targeted. Prior Study Comparison: 08/04/2024 Bilateral MG 3D screening mammo w/cad, [facility]. Findings: The upper inner quadrant of the right breast, the axilla of the right breast and the retroareolar of the right breast were scanned. Targeted ultrasound shows no worrisome solid or cystic mass or abnormal fluid collection. A benign-appearing lymph node in the right axilla is marked towards the end of the study. Overall Assessment: Negative, BI-RAD 1 Management: Screening Mammogram of both breasts in 1 year. Return to routine follow-up. A clinical breast exam by your physician is recommended on an annual basis and results should be correlated with mammographic findings. This exam should not preclude additional follow-up of suspicious palpable abnormalities. Results were given to the patient verbally at the time of exam. [facility], , 08/09/2024 9:18 AM. Electronically signed and approved by: Ney Phillips M.D.
== END | disposition home or self-care (01) ==
LOC: RADMAMWWP 07:53
PROVIDERS: ATTEND Obstetrics & Gynecology
DX: R92.8 Other abnormal and inconclusive findings on diagnostic imaging of breast (principal); R92.341 Mammographic extreme density, right breast; Z80.3 Family history of malignant neoplasm of breast
CPT/HCPCS: 77061; 77065